=== PATIENT | female | born 1970 | race Caucasian/White ===

== ENCOUNTER → 2019-01-27 | Outpatient (CLI) | payer SELFPAY ==
[~2019-01-27] MED LIST: NAPR-1070 PO
--- NOTE | 2019-01-27 16:32 | Diagnostic Imaging Report ---
PROCEDURE: US Thyroid. TECHNIQUE: Multiple real-time grayscale images were obtained of the thyroid in various projections. INDICATION: Right neck lump. FINDINGS: Right lobe of the thyroid measures 5.5 x 3 x 2.9 cm. There is a complex partially cystic nodule in the mid right lobe of the thyroid measuring 3.3 x 3 x 2 cm. Left lobe of the thyroid measures 5.5 x 1.8 x 1.2 cm. The isthmus measures 0.4 cm. No other discrete solid or cystic masses are appreciated. IMPRESSION: Complex partially cystic nodule in the right lobe of the thyroid measuring up to 3.3 cm. Further evaluation with ultrasound-guided biopsy is recommended to exclude malignancy Dictated by: Dictated on workstation # [id number]
== END ==
LOC: RAD 13:01
PROVIDERS: ATTEND Nurse Practitioner Community Health
DX: E04.1 Nontoxic single thyroid nodule (principal)
CPT/HCPCS: 76536

== ENCOUNTER → 2019-02-08 | Outpatient (CLI) | payer OTHER ==
[~2019-02-08] MED LIST changes: +HOLD METFORMIN - RECEIVED CONTRAST 20 ML VIAL IV SCH; +IOHEXOL 350 MG/ML 100 ML (OMNIPAQUE 350) VIAL IV ONE; +NS 100 ML (IVPB) BAG IV ONE
--- NOTE | 2019-02-08 16:20 | Diagnostic Imaging Report ---
PROCEDURE: CT maxillofacial with contrast. TECHNIQUE: After intravenous administration of contrast, axial images were obtained through the face and reformatted into coronal and sagittal planes. Auto Exposure Controls were utilized during the CT exam to meet ALARA standards for radiation dose reduction. INDICATION: Right facial lesion. COMPARISON: No prior studies are available for comparison. FINDINGS: The visualized intracranial structures are unremarkable. Bilateral globes and orbits are unremarkable. Posterior nasopharynx, oropharynx and larynx are unremarkable. Submandibular and parotid glands appear to be symmetric. No cervical lymphadenopathy is seen. No fluid collections are identified. There is a small superficial defect involving the premaxillary soft tissues on the right side medially but no discrete mass is identified. IMPRESSION: Right premaxillary and medial soft tissue defect. No underlying mass or fluid collection is identified. Dictated by: Dictated on workstation # [id number]
== END ==
LOC: RAD 14:14
PROVIDERS: ATTEND Surgery
DX: L98.9 Disorder of the skin and subcutaneous tissue, unspecified (principal)
CPT/HCPCS: 70487

== ENCOUNTER → 2019-02-09 | Outpatient (CLI) | payer OTHER ==
[~2019-02-09] MED LIST changes: -HOLD METFORMIN - RECEIVED CONTRAST 20 ML VIAL IV SCH; -IOHEXOL 350 MG/ML 100 ML (OMNIPAQUE 350) VIAL IV ONE; +LIDOCAINE 1% INJ 20 ML 20 ML VIAL INJ ONE; -NS 100 ML (IVPB) BAG IV ONE
--- NOTE | 2019-02-09 12:05 | Diagnostic Imaging Report ---
Indication: Right thyroid mass. Patient presents for ultrasound guided fine needle aspiration. Patient is brought to the procedure room and placed on the table in the supine position. Ultrasound imaging over the right neck was performed to evaluate appropriate entry site. Right neck was then prepped and draped in usual sterile fashion. Small amount of 1% lidocaine was utilized for local anesthesia. A total of 4 passes were made into the mixed and solid cystic mass in the right lobe of the thyroid with 25-gauge needles. Fine needle aspiration technique was utilized. Needle was withdrawn and hemostasis was obtained. Patient tolerated the procedure well and left the department in stable condition. Impression: Ultrasound guided right thyroid nodule fine-needle aspiration, as described. Pathology results are currently pending. Dictated by: Dictated on workstation # [id number]
== END ==
LOC: RAD 10:00
PROVIDERS: ATTEND Nurse Practitioner Community Health
DX: E04.1 Nontoxic single thyroid nodule (principal)

== ENCOUNTER → 2019-02-16 | Outpatient (CLI) | payer SELFPAY ==
[~2019-02-16] MED LIST changes: +ACHD5005 PO; +FAMO-144 PO; -LIDOCAINE 1% INJ 20 ML 20 ML VIAL INJ ONE
== END | disposition home or self-care (01) ==
LOC: PREOP 15:15
PROVIDERS: ATTEND Surgery
DX: Z01.818 Encounter for other preprocedural examination (principal)

== ENCOUNTER 2019-02-17 06:53 | Day surgery (SDC) | payer OTHER ==
[2019-02-17] VITALS (8 sets, daily range): BP systolic 104–130; BP diastolic 59–85
[~2019-02-17] VITALS: Ht 160 cm; Wt 74.4 kg
[~2019-02-17 06:53] MED LIST changes: -ACHD5005 PO; -FAMO-144 PO
[2019-02-17] MEDS ORDERED: BUP/EPI 0.5% 1:200,000 (MARCAINE) 10ML VIAL IJ ONE (07:00)
[2019-02-17] MEDS ORDERED: CATHETER FLUSH 10 ML SYR IV PRN (07:45)
[2019-02-17] MEDS ORDERED: ceFAZolin 2 GM/50 ML NS 50 ML IV ONE (07:45)
[2019-02-17] MEDS ORDERED: FAMO-144 PO (07:50)
[2019-02-17] MEDS ORDERED: LACTATED RINGERS 1,000 ML IV SCH (08:00)
[2019-02-17] MEDS ORDERED: MIDAZOLAM 2 MG/2 ML (VERSED) VIAL ONE ×2 (08:09→09:09)
--- NOTE | 2019-02-17 08:20 | Progress Note-Pre Operative ---
Pre-Operative Progress Note H&P Reviewed The H&P was reviewed, patient examined and no changes noted. Date Seen by Provider: Feb 17, 2019 Time Seen by Provider: 08:20 Date H&P Reviewed: Feb 17, 2019 Time H&P Reviewed: 08:20 Pre-Operative Diagnosis: facial lesions JASWANT DELGADO DO Feb 17, 2019 08:20
[2019-02-17] MEDS ORDERED: MIDAZOLAM 2 MG/2 ML (VERSED) VIAL IV ONE (08:30)
[2019-02-17] MEDS ORDERED: fentaNYL INJECTION 100 MCG/2 ML AMP ONE (09:09)
[2019-02-17] MEDS ORDERED: ONDANSETRON 4 MG/2 ML (SDV) Z0FRAN ONE (09:09)
[2019-02-17] MEDS ORDERED: DEXAMETHASONE 10 MG/ML (DECADRON) 1 ML VIAL ONE (09:09)
[2019-02-17] MEDS ORDERED: proPOfol 200 MG/20 ML (DIPRIVAN) VIAL IV ONE (09:09)
[2019-02-17] MEDS ORDERED: SEVOFLURANE (ULTANE) 15 ML INHAL SOLN ONE (09:09)
[2019-02-17] MEDS ORDERED: ARTIFICIAL TEARS OINT (LACRI-LUBE) 3.5 GM TUBE ONE (09:30)
[2019-02-17] MEDS ORDERED: MUPIROCIN 2% OINT 22 GM (BACTROBAN) TUBE ONE (10:01)
[2019-02-17] MEDS ORDERED: HYDROmorphone 2 MG/ML VIAL (DILAUDID) IV ONE (10:15)
[2019-02-17] MEDS ORDERED: ONDANSETRON 4 MG/2 ML (SDV) Z0FRAN IVP PRN (10:15)
--- NOTE | 2019-02-17 10:17 | Progress Note-Post Operative ---
Post-Operative Progess Note Surgeon (s)/Maintenance Dispatcher (s) Surgeon JASWANT DELGADO DO Maintenance Dispatcher: NA Pre-Operative Diagnosis facial lesions Post-Operative Diagnosis FACIAL LESION RIGHT HINDU RIGHT CHEEK RUPTURED CYST Procedure & Operative Findings Date of Procedure 02/17/19 Procedure Performed/Findings EXCISION RIGHT HINDU LESION AND RIGHT CHEEK RUPTURE CYST Anesthesia Type GEN Estimated Blood Loss Estimated blood loss (mL): MIN Specimens/Packing Specimens Removed RIGHT HINDU LESION, RIGHT CHEEK RUPTURED CYST JASWANT DELGADO DO Feb 17, 2019 10:17
[2019-02-17] MEDS ORDERED: ACHD5005 PO (10:18)
--- NOTE | 2019-02-17 10:20 | Discharge Inst-Simple/Standard ---
Discharge Inst-Standard Discharge Medications New, Converted or Re-Newed RX: RX on Chart Patient Instructions/Follow Up Plan of Care/Instructions/FU: 7 DAYS SANDY KEEP AREAS CLEAN AND DRY. Activity as Tolerated: Yes Discharge Diet: Regular Diet Other Inst to Patient Follow up Appt: Make appointment for 1 week. Instructions: May shower in 24 hours, no tub bath or soaking. Use incentive spirometer at home as directed. No Smoking Skin/Wound Care: May remove bandages. KEEP AREA CLEAN AND DRY. Symptoms to Report: Appetite Changes, Extremity Discoloration, Numbness/Tingling, Swelling Increased, Bleeding Excessive, Eyesight Changes, Pain Increased, Urine Color Change, Constipation(Persistent), Fever over 101 degree F, Pain/Pressure in chest, Urinating Difficulty, Cough Up/Vomit Blood, Heart Beat Irreg/Pounding, Pain/Pressure in jaw, Vaginal Bleeding Increase, Cramps in feet or legs, Lightheadedness, Pain/Pressure in shoulder, Diarrhea(Persistent), Memory Changes Suddenly, Questions/Concerns, Weight gain consecutive days, Dizziness/Fainting, Nausea/Vomiting, Shortness of Breath, Weight gain over 2 pounds If questions or concerns contact your physician Or seek help at emergency department. JASWANT DELGADO DO Feb 17, 2019 10:20
--- NOTE | 2019-02-17 13:39 | Anesthesia-General Post-Op ---
General Patient Condition Mental Status/LOC: Same as Preop Cardiovascular: Satisfactory Nausea/Vomiting: Absent Respiratory: Satisfactory Pain: Controlled Complications: Absent Post Op Complications Complications None Follow Up Care/Instructions Patient Instructions None needed. Anesthesia/Patient Condition Patient Condition Patient is doing well, no complaints, stable vital signs, no apparent adverse anesthesia problems. No complications reported per nursing. YENNI MCKEON CRNA Feb 17, 2019 13:39
--- NOTE | 2019-02-17 14:51 | OPERATIVE REPORT ---
DATE OF SERVICE: 02/17/2019 PREOPERATIVE DIAGNOSIS: Facial lesions. POSTOPERATIVE DIAGNOSIS: Right orthodox lesion and right cheek ruptured cyst. SURGEON: Jaswant Moreno DO ANESTHESIA: General. ESTIMATED BLOOD LOSS: Minimal. PROCEDURE PERFORMED: Excision of right orthodox lesion 0.7 cm x 1.2 cm and excision of right cheek ruptured cyst 2 x 0.7 cm. DESCRIPTION OF PROCEDURE: The patient was taken to the operating suite. She was prepped and draped in sterile fashion. Surgical pause was performed. Local anesthetic was infiltrated in the right temporal, elliptical incision was made around the lesion measuring 0.7 cm x 1.2 cm. Skin and subcutaneous tissue were removed. Skin was then closed using 4-0 Prolene in simple interrupted fashion. In the right cheek there was an opening in the skin and elliptical incision was made around the opening and this was more apparent of a ruptured cyst. Skin and subcutaneous tissue were removed excising the cystic wall. Hemostasis was achieved. The wound was then irrigated. Overall measurement of the dissection was 2 x 0.7 cm. The skin was then closed in simple interrupted fashion using 5-0 Prolene. The areas were then washed and dried and antibiotic ointment was placed over the incisions. The patient tolerated procedure well without any complications. She was taken to recovery room in stable condition. Job ID: [id number] DocumentID: [id number] Dictated Date: 02/17/2019 10:23:51 Supervisor Asbestos Removal Date: 02/17/2019 14:49:49 Dictated By: JASWANT MORENO DO
== END 2019-02-17 12:10 | disposition home or self-care (01) ==
LOC: SDC 06:53
PROVIDERS: ATTEND Surgery
DX: L72.0 Epidermal cyst (principal); D49.2 Neoplasm of unspecified behavior of bone, soft tissue, and skin; D22.39 Melanocytic nevi of other parts of face; K21.9 Gastro-esophageal reflux disease without esophagitis; I10 Essential (primary) hypertension; F41.9 Anxiety disorder, unspecified; F17.210 Nicotine dependence, cigarettes, uncomplicated; Z80.1 Family history of malignant neoplasm of trachea, bronchus and lung; Z90.710 Acquired absence of both cervix and uterus; Z79.891 Long term (current) use of opiate analgesic; Z79.899 Other long term (current) drug therapy
CPT/HCPCS: 84703; 87081; 88305

== ENCOUNTER 2019-03-02 05:31 | Outpatient (CLI) | payer OTHER ==
[~2019-03-02] VITALS: Ht 160 cm; Wt 74.4 kg
[~2019-03-02 05:31] MED LIST changes: +ACHD5005 PO; +FAMO-144 PO
== END 2019-03-02 09:21 | disposition home or self-care (01) ==
LOC: PREOP 05:31
PROVIDERS: ATTEND Surgery
DX: Z01.818 Encounter for other preprocedural examination (principal)

== ENCOUNTER 2019-03-04 08:01 | Day surgery (SDC) | payer OTHER ==
[~2019-03-04] VITALS: Ht 160 cm; Wt 74.4 kg
[2019-03-04] VITALS (11 sets, daily range): BP systolic 108–152; BP diastolic 67–84
[2019-03-04] MEDS ORDERED: LACTATED RINGERS 1,000 ML IV PRN (08:32)
[2019-03-04] MEDS ORDERED: SEVOFLURANE (ULTANE) 15 ML INHAL SOLN ONE ×2 (08:42→10:27)
[2019-03-04] MEDS ORDERED: ONDANSETRON 4 MG/2 ML (SDV) Z0FRAN ONE (08:42)
[2019-03-04] MEDS ORDERED: LIDOCAINE PF 2% 5 ML (XYLOCAINE) VIAL ONE (08:42)
[2019-03-04] MEDS ORDERED: proPOfol 200 MG/20 ML (DIPRIVAN) VIAL IV ONE (08:42)
[2019-03-04] MEDS ORDERED: DEXAMETHASONE 10 MG/ML (DECADRON) 1 ML VIAL ONE (08:42)
[2019-03-04] MEDS ORDERED: MIDAZOLAM 2 MG/2 ML (VERSED) VIAL ONE (08:43)
[2019-03-04] MEDS ORDERED: fentaNYL INJECTION 100 MCG/2 ML AMP ONE (08:43)
[2019-03-04] MEDS ORDERED: ceFAZolin INJECTION 1,000 MG in WATER (STERILE) FOR INJECTION 10 ML IV ONE (08:45)
--- NOTE | 2019-03-04 08:51 | Progress Note-Pre Operative ---
Pre-Operative Progress Note H&P Reviewed The H&P was reviewed, patient examined and no changes noted. Date Seen by Provider: Mar 04, 2019 Time Seen by Provider: 08:51 Date H&P Reviewed: Mar 04, 2019 Time H&P Reviewed: 08:51 Pre-Operative Diagnosis: basal cell carcinoma right cheek JASWANT DELGADO DO Mar 04, 2019 08:51
[2019-03-04] MEDS ORDERED: BUPIVACAINE 0.5% 30 ML (SENSORCAINE) VIAL ONE (09:00)
[2019-03-04] MEDS ORDERED: BUP/EPI 0.25% 1:200,000 (MARCAINE) 10 ML VIAL IJ ONE (09:01)
[2019-03-04] MEDS ORDERED: LIDOCAINE 1% INJ 20 ML 20 ML VIAL ONE (09:01)
[2019-03-04] MEDS ORDERED: CATHETER FLUSH 10 ML SYR IV PRN (09:30)
[2019-03-04] MEDS ORDERED: BSS 15 ML ONE (10:35)
--- NOTE | 2019-03-04 10:51 | Progress Note-Post Operative ---
Post-Operative Progess Note Surgeon (s)/Ict Account Manager (s) Surgeon JASWANT DELGADO DO Ict Account Manager: na Pre-Operative Diagnosis basal cell carcinoma right cheek Post-Operative Diagnosis same Procedure & Operative Findings Date of Procedure 03/04/19 Procedure Performed/Findings re-excision right cheek basal cell 2x1.25 cm Anesthesia Type gen Estimated Blood Loss Estimated blood loss (mL): min Specimens/Packing Specimens Removed right cheek JASWANT DELGADO DO Mar 04, 2019 10:50
[2019-03-04] MEDS ORDERED: morphine INJ 10 MG/ML 1ML (SYR OR VIAL) ONE (10:57)
[2019-03-04] MEDS ORDERED: ONDANSETRON 4 MG/2 ML (SDV) Z0FRAN IVP PRN (11:00)
[2019-03-04] MEDS ORDERED: morphine INJ 10 MG/ML 1ML (SYR OR VIAL) IVP ONE (11:00)
--- NOTE | 2019-03-04 15:26 | OPERATIVE REPORT ---
DATE OF SERVICE: 03/04/2019 PREOPERATIVE DIAGNOSIS: Lymphoma. POSTOPERATIVE DIAGNOSIS: Lymphoma. PROCEDURE: Right internal jugular vein ultrasound-guided port placement. SURGEON: Jaswant Moreno DO ANESTHESIA: MAC with local. ESTIMATED BLOOD LOSS: Minimal. COMPLICATIONS: None. INDICATIONS: The patient is a 65-year-old female with a need for port. She understands risks and benefits and wished to proceed with the procedure. Consent was signed in the chart. DESCRIPTION OF PROCEDURE: The patient was taken to the operating suite. She was prepped and draped in sterile fashion. A timeout was performed. Using the ultrasound, the right internal jugular vein was located. Local anesthetic was infiltrated and using micro access needle, the right internal jugular vein was accessed using ultrasound guidance. The micro access wire was inserted and the needle was removed. An 11 blade scalpel was used to make a skin incision. Fluoroscopy assured proper placement. The dilator sheath was then advanced over the guidewire and the wire and the dilator were removed. The regular guidewire was inserted through the sheath and sheath was then removed. Fluoroscopy assured proper placement. Local anesthetic was then used to anesthetize the right neck and right chest for pocket creation. A 15 blade scalpel was used to make a skin incision on the right chest and a pocket was created in the subcutaneous layer. A dilator sheath was advanced over the guidewire under fluoroscopy. The dilator and wire were removed. The [place] catheter was inserted through the sheath and then the sheath was removed. The sheath was then tunneled from the insertion point down to the pocket created on the right chest. It was then cut to length using fluoroscopy. The port was then attached in the usual fashion and then placed within the pocket. The port was accessed with no difficulty accessing and drawing blood or flushing first with saline and then with heparin. The subcutaneous tissues were then reapproximated using 3-0 Vicryl. The area was washed and dried. Skin Affix was placed over the incisions. The patient tolerated the procedure well without any complications. She was taken to recovery room in stable condition. Chest x-ray pending. Job ID: [id number] DocumentID: [id number] Dictated Date: 03/04/2019 08:54:27 Nursing Assistants Teacher Date: 03/04/2019 15:26:07 Dictated By: JASWANT MORENO DO
--- NOTE | 2019-03-04 18:29 | OPERATIVE REPORT ---
DATE OF SERVICE: 03/04/2019 PREOPERATIVE DIAGNOSIS: Basal cell carcinoma, right cheek. POSTOPERATIVE DIAGNOSIS: Basal cell carcinoma, right cheek. PROCEDURE: Reexcision right cheek basal cell carcinoma 2 x 1.25 cm. SURGEON: Jaswant Moreno DO ANESTHESIA: General. ESTIMATED BLOOD LOSS: Minimal. COMPLICATIONS: None. INDICATIONS: The patient is a 48-year-old female who had open ruptured cyst previously. Bio-pathology demonstrated basal cell carcinoma present with margins positive. The patient was discussed risks and benefits of having reexcision of this area performed. In the meantime, it has opened slightly. She understands risks and benefits and wishes to proceed with procedure. Consent was signed and placed in the chart. DESCRIPTION OF PROCEDURE: The patient was taken to the operating suite. She was prepped and draped in sterile fashion. Surgical pause was performed. Elliptical incision was made around the open wound, removing margin of the skin. There was no visible pathology present. Wound was mobilized circumferentially for closure. The skin and subcutaneous tissues were removed measuring 2 x 1.25 cm and removing some of the subcutaneous fat. The wound was then closed with 3-0 Prolene in simple interrupted fashion. The area was then washed and dried and sterile bandage was applied. The patient tolerated procedure well without any complications. She was taken to recovery room in stable condition. RECOMMENDATIONS: The patient will follow up on pathology in 1 week and also likely have sutures removed. The patient may need further surgical intervention. If she needs further surgical intervention, would consider Mohs or excision with skin grafting due to if further excision is needed. Job ID: [id number] DocumentID: [id number] Dictated Date: 03/04/2019 14:03:43 Associate Director Regulatory Affairs Date: 03/04/2019 18:29:09 Dictated By: JASWANT MORENO DO
== END 2019-03-04 12:51 | disposition home or self-care (01) ==
LOC: SDC 08:01
PROVIDERS: ATTEND Surgery
DX: C44.319 Basal cell carcinoma of skin of other parts of face (principal); Z11.2 Encounter for screening for other bacterial diseases; I10 Essential (primary) hypertension; K21.9 Gastro-esophageal reflux disease without esophagitis; F41.9 Anxiety disorder, unspecified; F17.210 Nicotine dependence, cigarettes, uncomplicated
CPT/HCPCS: 84703; 87081